=== PATIENT | male | born 1965 | race Hispanic/Latino ===

== ENCOUNTER 2017-06-26 09:25 | Emergency (ER) | payer OTHER, SELFPAY | END 2017-06-26 10:00 | disposition home or self-care (01) | LOC: NAV ERS 09:25 | DX: J11.1 Influenza due to unidentified influenza virus with other respiratory manifestations (principal); Z79.899 Other long term (current) drug therapy | CPT/HCPCS: 87081; 87430; 87804; 99283 ==